=== PATIENT | male | born 1975 | race Two or more races ===

== ENCOUNTER 2018-02-18 17:56 | Emergency (ER) | payer SELFPAY ==
--- NOTE | 2018-02-18 18:09 | PDOC ---
History of Present Illness <Amber Wade - Last Filed: 02/19/18 01:28> - General History Source: Patient Exam Limitations: No Limitations - History of Present Illness Initial Comments: 02/19/18 01:34 42-year-old male presents to the ER with shortness of breath, persistent cough productive of purulent sputum, tactile fevers, bilateral anterior chest wall pain that is exacerbated postoperatively associated with generalized weakness and malaise. Symptoms of been present for the past several days prior to arrival. Patient was seen and evaluated at [facility] urgent [facility] [place] and referred to the ER for further evaluation. Patient denies chest pain rest. There is no history of DVT/PE. REVIEW OF SYSTEMS CONSTITUTIONAL: + fever, no chills, + fatigue EYES: No visual changes ENT: No ear pain, no sore throat CARDIOVASCULAR: No chest pain, no palpitations RESPIRATORY: + cough, + SOB GI: No abdominal pain, no nausea, no vomiting, no constipation, no diarrhea GENITOURINARY: No dysuria, no frequency, no hematuria MUSKULOSKELETAL: No backpain, no joint pain, no myalgias SKIN: No rash NEURO: No headache EXAMINATION CONSTITUTIONAL: Well-appearing; well-nourished; in no apparent distress HEAD: Normocephalic; atraumatic EYES: PERRL; EOM intact ENMT: External appears normal; normal oropharynx NECK: Supple; non-tender; no cervical lymphadenopathy CARD: Normal S1, S2; no murmurs, rubs, or gallops RESP: Speaks full sentences; Normal chest excursion with respiration; + diffuse inspiratory and expiratory wheezing bilaterally; ABD: Soft, non-distended; non-tender; no palpable organomegaly, no palpable hernias EXT: Normal ROM in all four extremities; non-tender to palpation; distal pulses intact SKIN: Warm, dry, no rash NEURO: No focal neurological deficiencies. <Jose Luis Edmonds - Last Filed: 02/19/18 02:14> - General Chief Complaint: Respiratory Stated Complaint: COUGH Time Seen by Provider: 02/18/18 18:08 Past History <Amber Wade - Last Filed: 02/19/18 01:28> <Jose Luis Edmonds - Last Filed: 02/19/18 02:14> - Past Medical History Allergies/Adverse Reactions: Allergies Allergy/AdvReac Type Severity Reaction Status Date / Time No Known Allergies Allergy Verified 02/18/18 18:02 Home Medications: Ambulatory Orders Albuterol Sulfate Inhaler - [Ventolin HFA Inhaler -] 1 - 2 inh PO Q4H #1 inhaler 02/19/18 predniSONE [Deltasone -] 60 mg PO DAILY #15 tablet 02/19/18 *Physical Exam - Vital Signs Last Vital Signs Temp Pulse Resp BP Pulse Ox 99.9 F H 125 H 16 166/101 H 97 02/18/18 18:03 02/18/18 18:03 02/18/18 18:03 02/18/18 18:03 02/18/18 18:03 <Amber Wade - Last Filed: 02/19/18 01:28> Heart Score/ECG Review - ECG Intrepretation Comment:: EKG Interpretation: Taken at: 18-Feb-2018 18:32:04 Vent. rate 125 bpm Sinus Tachycardia Possible left atrial enlargement Borderline ECG <Amber Wade - Last Filed: 02/19/18 01:28> ED Treatment Course - LABORATORY CBC & Chemistry Diagram: 02/18/18 19:20 02/18/18 19:20 - Medications Given in the ED: ED Medications Discontinued Medications Generic Name Dose Route Start Last Admin Trade Name Freq PRN Reason Stop Dose Admin Albuterol/Ipratropium 2 amp 02/18/18 18:30 02/18/18 19:26 Duoneb - NEB 02/18/18 18:31 2 amp ONCE ONE Administration <Amber Wade - Last Filed: 02/19/18 01:28> - LABORATORY CBC & Chemistry Diagram: 02/18/18 19:20 02/18/18 19:20 <Jose Luis Edmonds - Last Filed: 02/19/18 02:14> Medical Decision Making - Medical Decision Making 02/19/18 01:36 42-year-old male with no significant past medical history of presents with shortness of breath, productive cough and wheezing. Patient is noted to be tachycardic on initial evaluation with diffuse inspiratory and expiratory wheezing. We'll administer Combivent, we will administer steroids. Will obtain chest x-ray as well as's CBC/CMP/influenza swab. EKG shows sinus tachycardia without evidence of acute ischemia. There is no evidence of right heart strain. Will reassess. 02/19/18 02:09 Patient reassessed. Patient is resting comfortably, reports significant improvement in his overall symptoms. Evaluation of the lungs reveals no adventitious sounds at this time. After brisk walk, patient denies any shortness of breath. CT AF chest reveals no evidence of PE or any other intrathoracic pathology. Heart rate is noted to be 102 at this time. I do not suspect ACS or PE at this time. Will discharge with albuterol MDI and a course of prednisone with outpatient follow-up. <Jose Luis Edmonds - Last Filed: 02/19/18 02:14> *DC/Admit/Observation/Transfer <Amber Wade - Last Filed: 02/19/18 01:28> <Jose Luis Edmonds - Last Filed: 02/19/18 02:14> Diagnosis at time of Disposition: Shortness of breath, Tachycardia - Discharge Dispostion Disposition: HOME Condition at time of disposition: Stable - Referrals Referrals: Veronique Gilliland [Primary Care Provider] - - Patient Instructions Printed Discharge Instructions: DI for Acute Bronchitis
[2018-02-18 18:11] VITALS: BMI 35.7
[2018-02-18] MEDS ORDERED: methylPREDNISolone NA SUCC 125 MG/2 ML VIAL IVPUSH ONE (18:30)
[2018-02-18] MEDS ORDERED: ALBUTEROL SO4 2.5/IPRATROPIUM 0.5 INH SOL 3 ML VIAL.NEB. NEB ONE ×2 (18:30→19:05)
[2018-02-18 19:40] LABS: BASO % 0.5 % (0-2.0); EOS % 4.8 % (0-4.5); HEMATOCRIT 44.3 % (35.4-49); HEMOGLOBIN 15.5 GM/dL (11.7-16.9); LYMPH % 20.5 % (8-40); MCH 32.2 pg (25.7-33.7); MCHC 34.9 g/dl (32.0-35.9); MEAN PLT VOLUME 7.2 fl (7.5-11.1); MONO % 5.7 % (3.8-10.2); NEUT % 68.5 % (42.8-82.8); PLATELET COUNT 353 K/MM3 (134-434); RBC 4.82 M/mm3 (4.00-5.60); RDW 12.6 % (11.9-15.9); WHITE BLOOD COUNT 7.8 K/mm3 (4.0-10.0)
[2018-02-18] MEDS ORDERED: methylPREDNISolone NA SUCC 125 MG/2 ML VIAL ONE (19:50)
[2018-02-18 20:09] LABS: ALBUMIN 4.2 g/dl (3.4-5.0); ALK PHOS 89 U/L (45-117); ANION GAP 10 MMOL/L (8-16); BILIRUBIN,TOTAL 0.6 mg/dL (0.2-1); BLOOD UREA NITROGEN 9 mg/dL (7-18); CALCIUM 9.5 mg/dL (8.5-10.1); CHLORIDE 99 mmol/L (98-107); CO2 26 mmol/L (21-32); CREATININE 0.8 mg/dL (0.55-1.3); GLUCOSE,RANDOM 194 mg/dL (74-106); POTASSIUM 4.4 mmol/L (3.5-5.1); SGOT/AST 28 U/L (15-37); SGPT/ALT 52 U/L (13-61); SODIUM 135 mmol/L (136-145); TOT PROT 7.8 g/dl (6.4-8.2)
[2018-02-18 23:39] VITALS: BP 144/99; PULSE 122; TEMP 98.5
[2018-02-19] MEDS ORDERED: SODIUM CHLORIDE 1,000 ML IV STA (00:05)
--- NOTE | 2018-02-19 11:10 | EKG ---
Test Reason : Blood Pressure : / mmHG Vent. Rate : 125 BPM Atrial Rate : 125 BPM P-R Int : 140 ms QRS Dur : 078 ms QT Int : 314 ms P-R-T Axes : 069 033 059 degrees QTc Int : 453 ms POOR DATA QUALITY, INTERPRETATION MAY BE ADVERSELY AFFECTED SINUS TACHYCARDIA POSSIBLE LEFT ATRIAL ENLARGEMENT BORDERLINE ECG WHEN COMPARED WITH ECG OF 14-OCT-2001 17:12, NO SIGNIFICANT CHANGE WAS FOUND Confirmed by CHRIS MITCHELL, KERA ([id number]) on 02/19/2018 11:09:46 AM Referred By: Confirmed By:KERA PEREZ MD
== END 2018-02-19 02:50 | disposition home or self-care (01) ==
LOC: JER 17:56
PROC: 3E0F7GC Introduction of Other Therapeutic Substance into Respiratory Tract, Via Natural or Artificial Opening (ICD-10-PCS; principal; 2018-02-18)
PROC: 3E033GC Introduction of Other Therapeutic Substance into Peripheral Vein, Percutaneous Approach (ICD-10-PCS; 2018-02-18)
PROC: 3E0337Z Introduction of Electrolytic and Water Balance Substance into Peripheral Vein, Percutaneous Approach (ICD-10-PCS; 2018-02-18)
DX: R00.0 Tachycardia, unspecified (principal); R06.02 Shortness of breath
CPT/HCPCS: 36415; 71046-TC-FY; 71275-TC; 80053; 84443; 85025; 87040; 87804; 93005; 93010; 99283-25; J7030

== ENCOUNTER 2021-06-19 10:11 | Inpatient (IN) | payer BC ==
[2021-06-19] MEDS ORDERED: SODIUM CHLORIDE 0.9% 500 ML INFUS.BAG IV ONE (10:52)
[2021-06-19 11:15] LABS: BASO % 0.6 % (0-2.0); EOS % 1.2 % (0-4.5); HEMATOCRIT 41.7 % (35.4-49); HEMOGLOBIN 14.7 GM/dL (11.7-16.9); LYMPH % 25.1 % (8-40); MCH 33.7 pg (25.7-33.7); MCHC 35.2 g/dl (32.0-35.9); MEAN CELL VOLUME 95.7 fl (80-96); MEAN PLT VOLUME 6.5 fl (7.5-11.1); MONO % 6.7 % (3.8-10.2); NEUT % 66.4 % (42.8-82.8); PLATELET COUNT 304 10^3/uL (134-434); RBC 4.36 M/mm3 (4.00-5.60); RDW 14.2 % (11.9-15.9); WHITE BLOOD COUNT 6.7 K/mm3 (4.0-10.0)
[2021-06-19 11:36] LABS: BLOOD UREA NITROGEN 6.7 mg/dL (7-18)
[2021-06-19 11:37] LABS: INR 1.02 (0.83-1.09); MAGNESIUM 1.6 mg/dL (1.8-2.4); PROTHROMBIN TIME (PATIENT) 11.7 SEC (9.7-13.0)
[2021-06-19 11:39] LABS: ACTIVATED PTT 28.6 SECONDS (25.2-36.5); CREATININE 0.9 mg/dL (0.55-1.3)
[2021-06-19 11:41] LABS: BILIRUBIN,TOTAL 0.3 mg/dL (0.2-1); TOT PROT 7.6 g/dl (6.4-8.2)
[2021-06-19] MEDS ORDERED: MAGNESIUM SULF 50% (8.12 MEQ/2 ML-1 GM VIAL) IVPB ONE (13:20)
[2021-06-19] MEDS ORDERED: MAGNESIUM 1GM/D5W - 1 GM/100 ML IVPB IVPB ONE (13:26)
[2021-06-19] MEDS ORDERED: LISINOPRIL 10 MG TABLET PO ONE (13:50)
[2021-06-19] MEDS ORDERED: amLODIPine BESYLATE 5 MG TABLET (FP) PO ONE (13:50)
[2021-06-19] MEDS ORDERED: amLODIPine BESYLATE 5 MG TABLET (FP) ONE (13:54)
[2021-06-19] MEDS ORDERED: LISINOPRIL 5 MG TABLET ONE (13:55)
[2021-06-19] MEDS ORDERED: LABETALOL HCL 5 MG/1 ML (100MG/20 ML VIAL) IVPUSH ONE (14:59)
[2021-06-19 15:17] LABS: URINE APPEARANCE CLEAR; URINE BILIRUBIN NEGATIVE (NEGATIVE); URINE COLOR YELLOW; URINE GLUCOSE (UA) NEGATIVE (NEGATIVE); URINE KETONE NEGATIVE (NEGATIVE); URINE LEUK ESTERASE NEGATIVE (NEGATIVE); URINE NITRITE NEGATIVE (NEGATIVE); URINE PROTEIN NEGATIVE (NEGATIVE); URINE UROBILINOGEN 0.2 mg/dL (0.2-1.0)
[2021-06-19] MEDS ORDERED: ONDANSETRON 4 MG/2 ML VIAL IVPUSH PRN (18:37)
[2021-06-19] MEDS ORDERED: ENOXAPARIN NA (PORCINE) 40 MG/0.4 ML DISP.SYRIN SQ ONE (19:07)
[2021-06-19] MEDS: ENOXAPARIN NA (PORCINE) 40 MG/0.4 ML DISP.SYRIN SQ SCH (19:15)
[2021-06-19] MEDS: INSULIN SLIDING SCALE (NOVOLOG) 1 VIAL SQ SCH (19:15)
[2021-06-19] MEDS ORDERED: ACETAMINOPHEN 325 MG TABLET (FP) ONE (22:14)
[2021-06-19] MEDS: LABETALOL HCL 5 MG/1 ML (200MG/40ML VIAL) IVPB PRN (22:26)
[2021-06-19] MEDS: ACETAMINOPHEN 325 MG TABLET (FP) PO PRN (22:26)
[2021-06-20] MEDS: ACETAMINOPHEN 325 MG TABLET (FP) PO PRN (05:53)
[2021-06-20] MEDS: INSULIN SLIDING SCALE (NOVOLOG) 1 VIAL SQ SCH ×3 (06:20→14:50)
[2021-06-20 07:38] LABS: HEMATOCRIT 37.8 % (35.4-49); HEMOGLOBIN 13.3 GM/dL (11.7-16.9); MCH 33.6 pg (25.7-33.7); MCHC 35.2 g/dl (32.0-35.9); MEAN CELL VOLUME 95.6 fl (80-96); MEAN PLT VOLUME 6.9 fl (7.5-11.1); PLATELET COUNT 262 10^3/uL (134-434); RBC 3.95 M/mm3 (4.00-5.60); RDW 13.7 % (11.9-15.9)
[2021-06-20 08:02] LABS: BILIRUBIN,TOTAL 0.6 mg/dL (0.2-1); BLOOD UREA NITROGEN 7.3 mg/dL (7-18); CHOLESTEROL 270 mg/dL (50-200)
[2021-06-20 08:03] LABS: CALCIUM 8.6 mg/dL (8.5-10.1); HDL CHOLESTEROL 46 mg/dL (40-60); LDL CHOLESTEROL (ONLY SJRH) 135 mg/dL (5-100); TOT PROT 6.4 g/dl (6.4-8.2)
[2021-06-20 08:04] LABS: ALBUMIN 3.4 g/dl (3.4-5.0); MAGNESIUM 1.9 mg/dL (1.8-2.4); PHOSPHOROUS 3.8 mg/dL (2.5-4.9)
[2021-06-20 08:05] LABS: CREATININE 0.7 mg/dL (0.55-1.3)
[2021-06-20 08:26] LABS: TRIGLYCERIDES 1004 mg/dL (0-150)
[2021-06-20] MEDS ORDERED: LABETALOL HCL 5 MG/1 ML (100MG/20 ML VIAL) ONE ×2 (08:27→22:13)
[2021-06-20] MEDS: ENOXAPARIN NA (PORCINE) 40 MG/0.4 ML DISP.SYRIN SQ SCH (09:47)
[2021-06-20] MEDS ORDERED: PNEUMOC 13-VAL CONJ-DIP CRM/PF 0.5 ML DISP.SYRIN IM ONE (10:00)
[2021-06-20] MEDS ORDERED: FENOFIBRIC ACID 45 MG CAP PO SCH (10:00)
[2021-06-20] MEDS ORDERED: LISINOPRIL 20 MG TABLET PO SCH (10:00)
[2021-06-20] MEDS ORDERED: PNEUMOCOCCAL 23 VACCINE 0.5 ML VIAL IM ONE (10:00)
[2021-06-20] MEDS ORDERED: amLODIPine BESYLATE 5 MG TABLET (FP) PO SCH (10:00)
[2021-06-20 10:08] LABS: SARS-CoV-2 NAA Not Detected (Not Detected)
[2021-06-20] MEDS ORDERED: Insulin (LOG) Aspart 100 UNITS/ML VIAL SQ SCH (14:00)
[2021-06-20 15:49] LABS: LACTIC ACID 3.3 mmol/L (0.4-2.0)
[2021-06-20] MEDS ORDERED: SODIUM CHLORIDE 1,000 ML IV STA (16:17)
[2021-06-20] MEDS ORDERED: DEXTROSE 50%-WATER - 25 GM/50 ML VIAL IVPUSH PRN (17:13)
[2021-06-20] MEDS ORDERED: INSULIN REGULAR HUMAN 100 UNITS/ML *VIAL* (FOR IVP) IVPUSH ONE (17:13)
[2021-06-20] MEDS ORDERED: INSULIN REGULAR 100 UNITS in SODIUM CHLORIDE 99 ML IVPB SCH (17:15)
[2021-06-20] MEDS ORDERED: DEXTROSE 5%-NORMAL SALINE 1,000 ML IV SCH (17:30)
[2021-06-20] MEDS: MUPIROCIN 2% TOPICAL OINTMENT FOR DECOLONIZATION NS SCH (21:09)
[2021-06-20] MEDS ORDERED: OMEGA-3 ACID ETHYL ESTERS (FATTY-ACIDS) 1 GM CAPSULE (FP) PO SCH (22:00)
[2021-06-20] MEDS ORDERED: ATORVASTATIN CA 40 MG TABLET (FP) PO SCH (22:00)
[2021-06-20] MEDS ORDERED: ATORVASTATIN CA 80 MG TABLET (FP) PO SCH (22:00)
[2021-06-20] MEDS ORDERED: CHLORHEXIDINE GLUCONATE 4% CLEANSER FOR DECOLONIZATION TP SCH (22:00)
[2021-06-20] MEDS ORDERED: CARVEDILOL 6.25 MG TABLET (FP) PO SCH (22:00)
[2021-06-20] MEDS: LABETALOL HCL 5 MG/1 ML (200MG/40ML VIAL) IVPB PRN (22:10)
[2021-06-21] MEDS ORDERED: DEXTROSE 50%-WATER 25 GM/50 ML DISP.SYRIN ONE ×2 (00:26→03:49)
[2021-06-21] MEDS: LABETALOL HCL 5 MG/1 ML (200MG/40ML VIAL) IVPB PRN (02:10)
[2021-06-21] MEDS ORDERED: DEXTROSE 5%-NORMAL SALINE 1,000 ML IV SCH (03:53)
[2021-06-21] MEDS: DEXTROSE 50%-WATER - 25 GM/50 ML VIAL IVPUSH PRN ×2 (04:12→07:04)
[2021-06-21 06:01] LABS: BASO % 0.5 % (0-2.0); HEMATOCRIT 38.1 % (35.4-49); HEMOGLOBIN 13.3 GM/dL (11.7-16.9); LYMPH % 26.4 % (8-40); MEAN CELL VOLUME 94.3 fl (80-96); MEAN PLT VOLUME 6.7 fl (7.5-11.1); MONO % 6.9 % (3.8-10.2); NEUT % 64.2 % (42.8-82.8); PLATELET COUNT 278 10^3/uL (134-434); RBC 4.05 M/mm3 (4.00-5.60); RDW 13.7 % (11.9-15.9); WHITE BLOOD COUNT 6.8 K/mm3 (4.0-10.0)
[2021-06-21 06:23] LABS: BLOOD UREA NITROGEN 8.2 mg/dL (7-18); CALCIUM 8.7 mg/dL (8.5-10.1); MAGNESIUM 1.8 mg/dL (1.8-2.4)
[2021-06-21 06:24] LABS: ALBUMIN 3.5 g/dl (3.4-5.0)
[2021-06-21 06:26] LABS: CREATININE 0.7 mg/dL (0.55-1.3)
[2021-06-21 06:28] LABS: BILIRUBIN,TOTAL 0.8 mg/dL (0.2-1); TOT PROT 6.5 g/dl (6.4-8.2)
[2021-06-21] MEDS ORDERED: DEXTROSE 50%-WATER 25 GM/50 ML DISP.SYRIN IVPUSH PRN (07:14)
[2021-06-21] MEDS ORDERED: ONDANSETRON 4 MG/2 ML VIAL IVPUSH PRN ×3 (07:20→12:44)
[2021-06-21] MEDS ORDERED: LABETALOL HCL 5 MG/1 ML (200MG/40ML VIAL) IVPB PRN (07:20)
[2021-06-21] MEDS ORDERED: LABETALOL HCL 5 MG/1 ML (100MG/20 ML VIAL) IVPB PRN ×3 (07:26→12:44)
[2021-06-21] MEDS: MUPIROCIN 2% TOPICAL OINTMENT FOR DECOLONIZATION NS SCH (09:24)
[2021-06-21] MEDS ORDERED: FENOFIBRIC ACID 135 MG CAP PO SCH ×2 (10:00)
[2021-06-21] MEDS ORDERED: ENOXAPARIN NA (PORCINE) 40 MG/0.4 ML DISP.SYRIN SQ SCH (10:00)
[2021-06-21] MEDS ORDERED: OMEGA-3 ACID ETHYL ESTERS (FATTY-ACIDS) 1 GM CAPSULE (FP) PO SCH ×2 (10:00→22:00)
[2021-06-21] MEDS ORDERED: LISINOPRIL 20 MG TABLET PO SCH (10:00)
[2021-06-21] MEDS ORDERED: CARVEDILOL 6.25 MG TABLET (FP) PO SCH ×3 (10:00→22:00)
[2021-06-21] MEDS ORDERED: CARVEDILOL 6.25 MG TABLET (FP) PO ONE (14:16)
[2021-06-21] MEDS ORDERED: LISINOPRIL 20 MG TABLET PO ONE (14:16)
[2021-06-21] MEDS: CARVEDILOL 12.5 MG TABLET (FP) PO SCH (20:59)
[2021-06-21] MEDS: ATORVASTATIN CA 80 MG TABLET (FP) PO SCH (20:59)
[2021-06-21] MEDS: OMEGA-3 ACID ETHYL ESTERS (FATTY-ACIDS) 1 GM CAPSULE (FP) PO SCH (20:59)
[2021-06-21] MEDS: LABETALOL HCL 5 MG/1 ML (100MG/20 ML VIAL) IVPB PRN (21:23)
[2021-06-21] MEDS ORDERED: ATORVASTATIN CA 80 MG TABLET (FP) PO SCH ×2 (22:00)
[2021-06-22] MEDS: LABETALOL HCL 5 MG/1 ML (100MG/20 ML VIAL) IVPB PRN (06:27)
[2021-06-22] MEDS ORDERED: GEMFIBROZIL 600 MG TABLET (FP) PO SCH ×3 (07:00)
[2021-06-22 07:10] LABS: BASO % 0.5 % (0-2.0); EOS % 2.2 % (0-4.5); HEMATOCRIT 36.7 % (35.4-49); HEMOGLOBIN 12.7 GM/dL (11.7-16.9); LYMPH % 30.7 % (8-40); MCH 33.5 pg (25.7-33.7); MCHC 34.8 g/dl (32.0-35.9); MEAN CELL VOLUME 96.3 fl (80-96); MEAN PLT VOLUME 6.9 fl (7.5-11.1); MONO % 6.7 % (3.8-10.2); NEUT % 59.9 % (42.8-82.8); PLATELET COUNT 256 10^3/uL (134-434); RBC 3.81 M/mm3 (4.00-5.60); RDW 13.5 % (11.9-15.9); WHITE BLOOD COUNT 6.1 K/mm3 (4.0-10.0)
[2021-06-22 07:41] LABS: CALCIUM 9.2 mg/dL (8.5-10.1)
[2021-06-22 07:42] LABS: ALBUMIN 3.2 g/dl (3.4-5.0); BLOOD UREA NITROGEN 10.9 mg/dL (7-18)
[2021-06-22 07:43] LABS: MAGNESIUM 1.9 mg/dL (1.8-2.4)
[2021-06-22 07:44] LABS: CREATININE 0.7 mg/dL (0.55-1.3)
[2021-06-22 07:46] LABS: BILIRUBIN,TOTAL 0.8 mg/dL (0.2-1); TOT PROT 6.3 g/dl (6.4-8.2)
[2021-06-22] MEDS ORDERED: ENOXAPARIN NA (PORCINE) 40 MG/0.4 ML DISP.SYRIN SQ SCH (10:00)
[2021-06-22] MEDS ORDERED: LISINOPRIL 20 MG TABLET PO SCH ×2 (10:00)
[2021-06-22] MEDS ORDERED: CARVEDILOL 25 MG TABLET (FP) PO SCH (10:38)
[2021-06-22] MEDS: LISINOPRIL 20 MG TABLET PO SCH (11:39)
[2021-06-22] MEDS: OMEGA-3 ACID ETHYL ESTERS (FATTY-ACIDS) 1 GM CAPSULE (FP) PO SCH ×2 (11:39→22:16)
[2021-06-22] MEDS: ENOXAPARIN NA (PORCINE) 40 MG/0.4 ML DISP.SYRIN SQ SCH (11:39)
[2021-06-22] MEDS: amLODIPine BESYLATE 5 MG TABLET (FP) PO SCH (11:39)
[2021-06-22] MEDS: CARVEDILOL 12.5 MG TABLET (FP) PO SCH (11:46)
[2021-06-22 14:03] VITALS: BMI 34.9
[2021-06-22] MEDS ORDERED: ACETAMINOPHEN 1000 MG/100 ML BAG IVPB ONE (16:34)
[2021-06-22] MEDS: ATORVASTATIN CA 80 MG TABLET (FP) PO SCH (22:16)
[2021-06-23] MEDS ORDERED: ACETAMINOPHEN 1000 MG/100 ML BAG IVPB ONE ×2 (07:13→21:49)
[2021-06-23 07:32] LABS: ALBUMIN 3.3 g/dl (3.4-5.0); BLOOD UREA NITROGEN 13.3 mg/dL (7-18); MAGNESIUM 1.9 mg/dL (1.8-2.4)
[2021-06-23 07:35] LABS: CREATININE 0.8 mg/dL (0.55-1.3)
[2021-06-23 07:37] LABS: BILIRUBIN,TOTAL 0.8 mg/dL (0.2-1); TOT PROT 6.4 g/dl (6.4-8.2)
[2021-06-23 07:38] LABS: BASO % 0.5 % (0-2.0); EOS % 2.1 % (0-4.5); HEMATOCRIT 35.7 % (35.4-49); HEMOGLOBIN 12.5 GM/dL (11.7-16.9); LYMPH % 27.1 % (8-40); MCH 33.6 pg (25.7-33.7); MCHC 35.1 g/dl (32.0-35.9); MEAN CELL VOLUME 95.6 fl (80-96); MONO % 6.9 % (3.8-10.2); NEUT % 63.4 % (42.8-82.8); PLATELET COUNT 258 10^3/uL (134-434); RBC 3.73 M/mm3 (4.00-5.60); RDW 13.6 % (11.9-15.9); WHITE BLOOD COUNT 6.5 K/mm3 (4.0-10.0)
[2021-06-23] MEDS: OMEGA-3 ACID ETHYL ESTERS (FATTY-ACIDS) 1 GM CAPSULE (FP) PO SCH ×2 (09:29→21:44)
[2021-06-23] MEDS: LISINOPRIL 20 MG TABLET PO SCH (09:30)
[2021-06-23] MEDS: ENOXAPARIN NA (PORCINE) 40 MG/0.4 ML DISP.SYRIN SQ SCH (09:30)
[2021-06-23] MEDS: LABETALOL HCL 200 MG TABLET (FP) PO SCH ×2 (09:30→21:44)
[2021-06-23] MEDS: amLODIPine BESYLATE 5 MG TABLET (FP) PO SCH (09:30)
[2021-06-23] MEDS: COLCHICINE 0.6 MG TAB PO SCH ×2 (11:22→21:44)
[2021-06-23] MEDS: CHLORTHALIDONE 25 MG TABLET PO SCH (11:22)
[2021-06-23] MEDS: CELECOXIB 200 MG CAPSULE PO SCH (11:22)
[2021-06-23] MEDS: ATORVASTATIN CA 80 MG TABLET (FP) PO SCH (21:44)
[2021-06-24] MEDS ORDERED: RAPID SEQUENCE INTUBATION KIT NR ONE (00:38)
[2021-06-24] MEDS: OMEGA-3 ACID ETHYL ESTERS (FATTY-ACIDS) 1 GM CAPSULE (FP) PO SCH ×2 (09:00→21:49)
[2021-06-24] MEDS: CHLORTHALIDONE 25 MG TABLET PO SCH (09:01)
[2021-06-24] MEDS: LABETALOL HCL 200 MG TABLET (FP) PO SCH ×2 (09:02→21:49)
[2021-06-24] MEDS: CELECOXIB 200 MG CAPSULE PO SCH (09:02)
[2021-06-24] MEDS: amLODIPine BESYLATE 5 MG TABLET (FP) PO SCH (09:02)
[2021-06-24] MEDS: COLCHICINE 0.6 MG TAB PO SCH ×2 (09:03→22:30)
[2021-06-24] MEDS: LISINOPRIL 20 MG TABLET PO SCH (09:03)
[2021-06-24] MEDS: ENOXAPARIN NA (PORCINE) 40 MG/0.4 ML DISP.SYRIN SQ SCH (09:04)
[2021-06-24] MEDS ORDERED: ACETAMINOPHEN 325 MG TABLET (FP) PO ONE (18:00)
[2021-06-24] MEDS ORDERED: oxyCODONE HCL 5 MG TABLET PO ONE (18:00)
[2021-06-24] MEDS: ATORVASTATIN CA 80 MG TABLET (FP) PO SCH (21:49)
[2021-06-24] MEDS: ACETAMINOPHEN 325 MG TABLET (FP) PO PRN (23:15)
[2021-06-25] MEDS: ACETAMINOPHEN 325 MG TABLET (FP) PO PRN (06:32)
[2021-06-25] MEDS: CELECOXIB 200 MG CAPSULE PO SCH (09:29)
[2021-06-25] MEDS: LABETALOL HCL 200 MG TABLET (FP) PO SCH ×2 (09:29→21:47)
[2021-06-25] MEDS: ENOXAPARIN NA (PORCINE) 40 MG/0.4 ML DISP.SYRIN SQ SCH (09:29)
[2021-06-25] MEDS: CHLORTHALIDONE 25 MG TABLET PO SCH (09:30)
[2021-06-25] MEDS: OMEGA-3 ACID ETHYL ESTERS (FATTY-ACIDS) 1 GM CAPSULE (FP) PO SCH ×2 (09:30→21:46)
[2021-06-25] MEDS: COLCHICINE 0.6 MG TAB PO SCH ×2 (09:30→22:30)
[2021-06-25] MEDS: LISINOPRIL 20 MG TABLET PO SCH ×2 (09:30→10:00)
[2021-06-25] MEDS: amLODIPine BESYLATE 5 MG TABLET (FP) PO SCH (09:30)
[2021-06-25] MEDS: ATORVASTATIN CA 80 MG TABLET (FP) PO SCH (21:47)
[2021-06-26] MEDS: LISINOPRIL 20 MG TABLET PO SCH (09:16)
[2021-06-26] MEDS: OMEGA-3 ACID ETHYL ESTERS (FATTY-ACIDS) 1 GM CAPSULE (FP) PO SCH (09:16)
[2021-06-26] MEDS: amLODIPine BESYLATE 5 MG TABLET (FP) PO SCH (09:16)
[2021-06-26] MEDS: LABETALOL HCL 200 MG TABLET (FP) PO SCH (09:16)
[2021-06-26] MEDS: ENOXAPARIN NA (PORCINE) 40 MG/0.4 ML DISP.SYRIN SQ SCH (09:16)
[2021-06-26] MEDS: CELECOXIB 200 MG CAPSULE PO SCH (09:17)
[2021-06-26] MEDS: CHLORTHALIDONE 25 MG TABLET PO SCH (09:17)
[2021-06-26] MEDS: COLCHICINE 0.6 MG TAB PO SCH (09:17)
[2021-06-26 10:32] VITALS: BP 130/92; PULSE 105; TEMP 97.5
== END 2021-06-26 12:20 | disposition home or self-care (01) | DRG 305 ==
LOC: JER 10:11 → JERBED 14:40 → J4W 06-20 00:38 → JICU 06-20 18:32 → OBSVTOIN 06-21 14:20
PROVIDERS: ADMIT Internal Medicine; ATTEND Nurse Practitioner Family
DX: I16.0 Hypertensive urgency (principal); I16.1 Hypertensive emergency; E87.2 Acidosis; R00.0 Tachycardia, unspecified; E78.1 Pure hyperglyceridemia; E78.2 Mixed hyperlipidemia; M10.262 Drug-induced gout, left knee; E66.01 Morbid (severe) obesity due to excess calories; Z68.35 Body mass index [BMI] 35.0-35.9, adult; E11.65 Type 2 diabetes mellitus with hyperglycemia; R51.9 Headache, unspecified; Z91.14 Patient's other noncompliance with medication regimen
CPT/HCPCS: 36415; 70450-TC; 71046-TC-FY; 71275-TC; 80048; 80053; 80061; 81003; 82150; 82962; 83036; 83605; 83690; 83735; 84100; 84439; 84443; 84478; 84484; 85025; 85027; 85379; 85610; 85730; 87086; 90732; 93005; 93010; 93306-TC; 93308; 97116-GP; 97161-GP; 99285-25; C9803; G0009; G0378; U0003; U0005

== ENCOUNTER 2023-08-29 22:07 | Inpatient (IN) | payer BC ==
[2023-08-29] MEDS: INDOMETHACIN 50 MG CAPSULE PO ONE (23:18)
[2023-08-29 23:19] LABS: BASO % 0.2 % (0-2.0); EOS % 0.6 % (0-4.5); HEMATOCRIT 37.5 % (35.4-49); HEMOGLOBIN 13.1 GM/dL (11.7-16.9); LYMPH % 11.1 % (8-40); MCH 32.4 pg (25.7-33.7); MCHC 34.9 g/dl (32.0-35.9); MEAN CELL VOLUME 92.8 fl (80-96); MEAN PLT VOLUME 7.3 fl (7.5-11.1); MONO % 6.4 % (3.8-10.2); NEUT % 81.7 % (42.8-82.8); PLATELET COUNT 303 10^3/uL (134-434); RBC 4.04 M/mm3 (4.00-5.60); RDW 13.6 % (11.9-15.9)
[2023-08-29 23:21] LABS: VENOUS O2 SATURATION 27.4 % (70-80); VENOUS PH 7.37 (7.310-7.410)
[2023-08-29 23:27] LABS: INR 1.01 (0.83-1.09); PROTHROMBIN TIME (PATIENT) 11.4 SEC (9.7-13.0)
[2023-08-29 23:29] LABS: ACTIVATED PTT 29.6 SECONDS (25.2-36.5)
[2023-08-29 23:38] LABS: POTASSIUM 3.8 mmol/L (3.5-5.1)
[2023-08-29 23:40] LABS: CALCIUM 9.1 mg/dL (8.5-10.1)
[2023-08-29 23:41] LABS: ALBUMIN 3.6 g/dl (3.4-5.0); BLOOD UREA NITROGEN 11.2 mg/dL (7-18)
[2023-08-29 23:44] LABS: CREATININE 0.9 mg/dL (0.55-1.3)
[2023-08-29 23:45] LABS: BILIRUBIN,TOTAL 0.9 mg/dL (0.2-1); TOT PROT 7.4 g/dl (6.4-8.2)
[2023-08-29 23:46] LABS: URIC ACID 5.4 mg/dL (2.6-7.2)
[2023-08-30 00:04] LABS: ERYTHROCYTE SEDIMENTATION RATE 54 mm/hr (0-10)
[2023-08-30] MEDS ORDERED: VANCOMYCIN 1 GRAM (PRE-DOCKED) 1,000 MG/250 ML BAG IVPB ONE (00:47)
[2023-08-30] MEDS: VANCOMYCIN 1,000 MG in DEXTROSE 5%-WATER - 250 ML IVPB ONE (01:23)
[2023-08-30] MEDS ORDERED: ACETAMINOPHEN INJECTION 100 ML IVPB ONE (02:51)
[2023-08-30] MEDS: ACETAMINOPHEN 1000 MG/100 ML BAG IVPB ONE (02:55)
[2023-08-30 03:10] LABS: EPI CELLS 3 /uL (0-25.1); HYALINE CASTS 0 /uL (0-3.1); PH,URINE 5.5 (5.0-8.0); URINE APPEARANCE CLEAR; URINE BACTERIA 0 /uL (0-1359); URINE BILIRUBIN NEGATIVE (NEGATIVE); URINE COLOR YELLOW; URINE GLUCOSE (UA) 2+ (NEGATIVE); URINE KETONE NEGATIVE (NEGATIVE); URINE LEUK ESTERASE NEGATIVE (NEGATIVE); URINE NITRITE NEGATIVE (NEGATIVE); URINE PROTEIN TRACE (NEGATIVE); URINE RBC 17 /uL (0-23.9); URINE UROBILINOGEN 0.2 mg/dL (0.2-1.0); URINE WBC 4 /uL (0-25.8)
[2023-08-30 05:12] LABS: BF WBC & OTHER NUCLEATED CELLS 23634 /mm3
[2023-08-30 05:23] LABS: CRYSTALS,SYNOVIAL FLUID NEGATIVE
[2023-08-30 05:43] LABS: BODY FLUID MACROPHAGES 16 %
[2023-08-30] MEDS ORDERED: ALBUTEROL SO4 HFA INHALER IH PRN (09:48)
[2023-08-30] MEDS ORDERED: LOSARTAN POTASSIUM 50 MG TABLET ONE (09:54)
[2023-08-30] MEDS ORDERED: ENOXAPARIN NA (PORCINE) 40 MG/0.4 ML DISP.SYRIN SQ ONE (09:54)
[2023-08-30] MEDS ORDERED: ENOXAPARIN NA (PORCINE) 40 MG/0.4 ML DISP.SYRIN SQ SCH (10:00)
[2023-08-30] MEDS: LOSARTAN POTASSIUM 50 MG TABLET PO SCH (10:02)
[2023-08-30] MEDS ORDERED: metoPROLOL SUCCINATE 25 MG TAB.SR.24H (FP) PO ONE (10:41)
[2023-08-30] MEDS: metoPROLOL SUCCINATE 25 MG TAB.SR.24H (FP) PO SCH (10:45)
[2023-08-30] MEDS: INSULIN ASPART SLIDING SCALE (NOVOLOG) 1 VIAL SQ SCH (12:37)
[2023-08-30] MEDS: HYDROCHLOROTHIAZIDE 25 MG TABLET (FP) PO ONE ×2 (13:18→16:34)
[2023-08-30 15:54] VITALS: BMI 34.6
[2023-08-30] MEDS: PIPERACILLIN/TAZOB 3.375 GM 3.375 GM in DEXTROSE 5%-WATER - 50 ML IVPB SCH (17:42)
[2023-08-30] MEDS: NAPROXEN 500 MG TABLET PO SCH (20:07)
[2023-08-30] MEDS: ATORVASTATIN CA 80 MG TABLET (FP) PO SCH (21:17)
[2023-08-30] MEDS: ACETAMINOPHEN 325 MG TABLET (FP) PO PRN (21:20)
[2023-08-30] MEDS ORDERED: CIPROFLOXACIN 200 MG/D5W 100 ML IVPB SCH (22:00)
[2023-08-31 08:50] LABS: BASO % 0.6 % (0-2.0); EOS % 1.8 % (0-4.5); HEMATOCRIT 35.4 % (35.4-49); HEMOGLOBIN 12.3 GM/dL (11.7-16.9); LYMPH % 20.4 % (8-40); MCH 32.3 pg (25.7-33.7); MCHC 34.8 g/dl (32.0-35.9); MEAN CELL VOLUME 92.7 fl (80-96); MEAN PLT VOLUME 6.7 fl (7.5-11.1); MONO % 6.4 % (3.8-10.2); NEUT % 70.8 % (42.8-82.8); PLATELET COUNT 315 10^3/uL (134-434); RBC 3.82 M/mm3 (4.00-5.60); RDW 13.6 % (11.9-15.9); WHITE BLOOD COUNT 8.6 K/mm3 (4.0-10.0)
[2023-08-31 09:10] LABS: POTASSIUM 3.9 mmol/L (3.5-5.1)
[2023-08-31] MEDS: ENOXAPARIN NA (PORCINE) 40 MG/0.4 ML DISP.SYRIN SQ SCH (09:10)
[2023-08-31] MEDS: HYDROCHLOROTHIAZIDE 12.5 MG CAPSULE (FP) PO SCH (09:10)
[2023-08-31 09:13] LABS: CALCIUM 9.2 mg/dL (8.5-10.1)
[2023-08-31 09:14] LABS: MAGNESIUM 1.8 mg/dL (1.8-2.4)
[2023-08-31 09:17] LABS: CREATININE 0.8 mg/dL (0.55-1.3); PHOSPHOROUS 3.2 mg/dL (2.5-4.9)
[2023-08-31] MEDS ORDERED: HYDROCHLOROTHIAZIDE 25 MG TABLET (FP) PO SCH (10:00)
[2023-08-31] MEDS: amLODIPine BESYLATE 5 MG TABLET (FP) PO SCH (15:01)
[2023-08-31] MEDS: ATORVASTATIN CA 80 MG TABLET (FP) PO SCH (21:22)
[2023-08-31] MEDS ORDERED: LACOSAMIDE 200 MG TABLET PO SCH (22:00)
[2023-09-01] MEDS ORDERED: INSULIN (NOVOLOG) ASPART 100 UNITS/ML 10ML VIAL ONE (06:31)
[2023-09-01 09:03] LABS: BASO % 0.5 % (0-2.0); EOS % 3.4 % (0-4.5); HEMATOCRIT 33.2 % (35.4-49); HEMOGLOBIN 11.9 GM/dL (11.7-16.9); LYMPH % 26.1 % (8-40); MCH 32.8 pg (25.7-33.7); MCHC 35.7 g/dl (32.0-35.9); MEAN CELL VOLUME 91.7 fl (80-96); MEAN PLT VOLUME 7.2 fl (7.5-11.1); MONO % 8.4 % (3.8-10.2); NEUT % 61.6 % (42.8-82.8); PLATELET COUNT 338 10^3/uL (134-434); RBC 3.62 M/mm3 (4.00-5.60); RDW 13.4 % (11.9-15.9); WHITE BLOOD COUNT 6.6 K/mm3 (4.0-10.0)
[2023-09-01 09:14] LABS: POTASSIUM 4.4 mmol/L (3.5-5.1)
[2023-09-01 09:18] LABS: CALCIUM 9.6 mg/dL (8.5-10.1)
[2023-09-01 09:19] LABS: ALBUMIN 3.2 g/dl (3.4-5.0); BLOOD UREA NITROGEN 13.1 mg/dL (7-18)
[2023-09-01 09:22] LABS: CREATININE 0.8 mg/dL (0.55-1.3)
[2023-09-01 09:24] LABS: BILIRUBIN,TOTAL 0.8 mg/dL (0.2-1); TOT PROT 6.7 g/dl (6.4-8.2)
[2023-09-01] MEDS ORDERED: INSULIN (NOVOLOG MIX 70/30) 100 UNITS/ML MDV SQ ONE (12:04)
[2023-09-01 15:31] LABS: BODY FLUID ALBUMIN 2.5 g/dL (Not Estab.)
[2023-09-01] MEDS: POLYETHYLENE GLYCOL (HEALTHYLAX) 3350 17 GM PACKET PO SCH (21:38)
[2023-09-02 08:44] LABS: BASO % 0.7 % (0-2.0); EOS % 3.4 % (0-4.5); HEMATOCRIT 33.9 % (35.4-49); HEMOGLOBIN 11.8 GM/dL (11.7-16.9); LYMPH % 26.9 % (8-40); MCH 32.4 pg (25.7-33.7); MEAN CELL VOLUME 92.7 fl (80-96); MONO % 8.2 % (3.8-10.2); NEUT % 60.8 % (42.8-82.8); PLATELET COUNT 349 10^3/uL (134-434); RBC 3.65 M/mm3 (4.00-5.60); RDW 13.4 % (11.9-15.9); WHITE BLOOD COUNT 5.6 K/mm3 (4.0-10.0)
[2023-09-02 08:51] LABS: POTASSIUM 4.2 mmol/L (3.5-5.1)
[2023-09-02 08:54] LABS: ALBUMIN 3.2 g/dl (3.4-5.0); BLOOD UREA NITROGEN 12.8 mg/dL (7-18); CALCIUM 9.4 mg/dL (8.5-10.1); MAGNESIUM 1.8 mg/dL (1.8-2.4)
[2023-09-02 08:57] LABS: CREATININE 0.7 mg/dL (0.55-1.3)
[2023-09-02 08:59] LABS: BILIRUBIN,TOTAL 0.8 mg/dL (0.2-1); TOT PROT 6.6 g/dl (6.4-8.2)
[2023-09-02] MEDS ORDERED: amLODIPine BESYLATE 10 MG TABLET (FP) PO SCH (10:39)
[2023-09-02] MEDS: amLODIPine BESYLATE 5 MG TABLET (FP) PO ONE (11:21)
[2023-09-02] MEDS ORDERED: INSULIN (NOVOLOG) ASPART 100 UNITS/ML 10ML VIAL ONE (11:29)
[2023-09-02 13:46] VITALS: BP 152/98; PULSE 76; RESP 18; TEMP 97.8
== END 2023-09-02 16:36 | disposition home or self-care (01) | DRG 563 ==
LOC: JER 22:07 → JERBED 08-30 09:06 → J8W 08-30 12:54
PROVIDERS: ADMIT Student in an Organized Health Care Education/Training Program; ATTEND Nurse Practitioner Acute Care
PROC: 0S9C3ZZ Drainage of Right Knee Joint, Percutaneous Approach (ICD-10-PCS; principal; 2023-08-30)
DX: S83.511A Sprain of anterior cruciate ligament of right knee, initial encounter (principal); M25.461 Effusion, right knee; M10.9 Gout, unspecified; I16.0 Hypertensive urgency; E11.9 Type 2 diabetes mellitus without complications; K52.9 Noninfective gastroenteritis and colitis, unspecified; E66.9 Obesity, unspecified; Z68.34 Body mass index [BMI] 34.0-34.9, adult; X58.XXXA Exposure to other specified factors, initial encounter; Y93.9 Activity, unspecified; Y92.89 Other specified places as the place of occurrence of the external cause; Y99.9 Unspecified external cause status
CPT/HCPCS: 0241U-QW; 36415; 71045-TC-FY; 73560-TC-LT-FY; 73564-TC-RT-FY; 73718-TC-RT; 74177-TC; 80048; 80053; 81003; 82042; 82272; 82803; 82945; 82962; 83605; 83735; 84100; 84484; 84550; 84560; 85025; 85610; 85651; 85730; 86140; 86850; 86900; 86901; 87040; 87070; 87075; 87086; 87205; 89060; 93005; 93010; 93971-TC; 97116-GP; 97162-GP; 99285-25; J0131; Q9967